=== PATIENT | female | born 1935 | race Caucasian/White ===

== ENCOUNTER 2021-03-09 22:00 | Emergency (ER) | payer MEDICARE ==
--- NOTE | 2021-03-09 22:23 | EDM.PDOC ---
ED HPI GENERAL MEDICAL PROBLEM - General Chief Complaint: General Stated Complaint: VERY TIRED Time Seen by Provider: 03/09/21 22:22 Source of Information: Reports: Patient History Limitations: Reports: Language Barrier (hearing hard) - History of Present Illness INITIAL COMMENTS - FREE TEXT/NARRATIVE: Son brings her in due to fatigue,excessive sleeping over two days. No other c omplaints. Has HTN,CKD,Hypothyroidism. - Related Data Allergies Allergy/AdvReac Type Severity Reaction Status Date / Time No Known Allergies Allergy Verified 03/09/21 22:10 ED ROS GENERAL - Review of Systems Review Of Systems: Comprehensive ROS is negative, except as noted in HPI. ED EXAM, GENERAL - Physical Exam Exam: See Below Exam Limited By: No Limitations General Appearance: Alert, WD/WN, No Apparent Distress Nose: Normal Inspection Throat/Mouth: Normal Inspection Head: Atraumatic Respiratory/Chest: No Respiratory Distress Cardiovascular: Normal Peripheral Pulses Course - Vital Signs Last Recorded V/S: Last Vital Signs Temp 98.0 F 03/09/21 23:15 Pulse 66 03/09/21 23:15 Resp 18 03/09/21 23:15 BP 149/69 H 03/09/21 23:15 Pulse Ox 99 03/09/21 23:15 - Orders/Labs/Meds Labs: Laboratory Tests 03/09/21 03/09/21 03/09/21 Range/Units 22:30 22:30 22:30 WBC 5.7 (3.0-10.3) x10-3/uL RBC 4.50 (3.60-5.20) x10(6)uL Hgb 13.2 (11.4-15.5) g/dL Hct 40.1 (34.2-48.2) % MCV 89.2 (76.7-100.5) fL MCH 29.3 (23.9-33.9) pg MCHC 32.9 (31.9-34.8) g/dL RDW 14.2 (12.3-16.5) % Plt Count 228 (151-488) x10(3)uL MPV 7.5 (7.1-12.4) fL Neut % (Auto) 66.8 (30.8-76.2) % Lymph % (Auto) 21.7 (18.4-52.1) % Sherman % (Auto) 7.8 (4.4-15.7) % Eos % (Auto) 3.2 (0.6-8.1) % Baso % (Auto) 0.5 (0.2-1.5) % Neut # (Auto) 3.8 (1.5-6.3) x10-3/uL Lymph # (Auto) 1.2 (1.0-4.4) x10-3/uL Sherman # (Auto) 0.4 (0.3-1.0) x10-3/uL Eos # (Auto) 0.2 (0.0-0.8) x10-3/uL Baso # (Auto) 0.0 (0.0-0.1) x10-3/uL Sodium 135 (135-145) mmol/L Potassium 3.7 (3.5-5.3) mmol/L Chloride 100 (100-110) mmol/L Carbon Dioxide 23 (21-32) mmol/L BUN 24 H (7-18) mg/dL Creatinine 1.4 H (0.55-1.02) mg/dL Est Cr Clr Drug Dosing 21.36 mL/min Estimated GFR (MDRD) 36 L (>60) BUN/Creatinine Ratio 17.1 (9-20) Glucose 113 (80-116) mg/dL Calcium 8.7 (8.6-10.2) mg/dL Troponin I 7.4 (4.0-60.3) pg/mL TSH, Ultra Sensitive (0.36-3.74) IU/mL SARS-CoV-2 RNA (BENJAMIN) (NEGATIVE) 03/09/21 03/09/21 Range/Units 22:30 22:40 WBC (3.0-10.3) x10-3/uL RBC (3.60-5.20) x10(6)uL Hgb (11.4-15.5) g/dL Hct (34.2-48.2) % MCV (76.7-100.5) fL MCH (23.9-33.9) pg MCHC (31.9-34.8) g/dL RDW (12.3-16.5) % Plt Count (151-488) x10(3)uL MPV (7.1-12.4) fL Neut % (Auto) (30.8-76.2) % Lymph % (Auto) (18.4-52.1) % Sherman % (Auto) (4.4-15.7) % Eos % (Auto) (0.6-8.1) % Baso % (Auto) (0.2-1.5) % Neut # (Auto) (1.5-6.3) x10-3/uL Lymph # (Auto) (1.0-4.4) x10-3/uL Sherman # (Auto) (0.3-1.0) x10-3/uL Eos # (Auto) (0.0-0.8) x10-3/uL Baso # (Auto) (0.0-0.1) x10-3/uL Sodium (135-145) mmol/L Potassium (3.5-5.3) mmol/L Chloride (100-110) mmol/L Carbon Dioxide (21-32) mmol/L BUN (7-18) mg/dL Creatinine (0.55-1.02) mg/dL Est Cr Clr Drug Dosing mL/min Estimated GFR (MDRD) (>60) BUN/Creatinine Ratio (9-20) Glucose (80-116) mg/dL Calcium (8.6-10.2) mg/dL Troponin I (4.0-60.3) pg/mL TSH, Ultra Sensitive 9.59 H* (0.36-3.74) IU/mL SARS-CoV-2 RNA (BENJAMIN) Negative (NEGATIVE) Departure - Departure Time of Disposition: 08:30 Disposition: Home, Self-Care 01 Condition: Good Clinical Impression: HTN (hypertension), Fatigue - Discharge Information Instructions: Fatigue Referrals: Kecia Ivory PA [Primary Care Provider] - Forms: ED Department Discharge Additional Instructions: we will call you with covid test tomorrow follow up with your primary care next week Sepsis Event Note (ED) - Evaluation Sepsis Screening Result: No Definite Risk - Focused Exam Vital Signs: Vital Signs Temp Pulse Resp BP Pulse Ox 03/09/21 23:15 98.0 F 66 18 149/69 H 99 03/09/21 22:00 97.9 F 73 18 161/91 H 99 - Problem List & Annotations (1) Fatigue SNOMED Code(s): 35637020 Code(s): R53.83 - OTHER FATIGUE Status: Acute (2) HTN (hypertension) SNOMED Code(s): 79816108 Code(s): I10 - ESSENTIAL (PRIMARY) HYPERTENSION Status: Acute (3) CKD (chronic kidney disease) SNOMED Code(s): 374832696 Code(s): N18.9 - CHRONIC KIDNEY DISEASE, UNSPECIFIED Status: Acute (4) Hypothyroidism SNOMED Code(s): 36740635 Code(s): E03.9 - HYPOTHYROIDISM, UNSPECIFIED Status: Acute - Problem List Review Problem List Initiated/Reviewed/Updated: Yes - Assessment/Plan Plan: No reason to explain her excessive sleep. Kidney function at baseline. DC home,follow with PCP
== END 2021-03-09 23:21 | disposition home or self-care (01) ==
LOC: FB.ED 22:00
DX: I10 Essential (primary) hypertension (principal); Z20.822 Contact with and (suspected) exposure to COVID-19
CPT/HCPCS: 36415; 80048; 84443; 84484; 85025; 99283; U0002

== ENCOUNTER 2023-03-17 13:04 | Inpatient (IN) | payer MEDICARE ==
[2023-03-17 14:05] LABS: BASOPHILS ABSOLUTE AUTO 0.1 x10-3/uL (0.0-0.1); EOSINOPHILS ABSOLUTE AUTO 0.2 x10-3/uL (0.0-0.8); HEMATOCRIT 38.4 % (34.2-48.2); HEMOGLOBIN 12.4 g/dL (11.4-15.5); LYMPHOCYTES ABSOLUTE AUTO 0.9 x10-3/uL (1.0-4.4); LYMPHOCYTES PERCENT AUTO 14.5 % (18.4-52.1); MEAN CORPUSCULAR HEMOGLOBIN 28.7 pg (23.9-33.9); MEAN CORPUSCULAR HGB CONC 32.3 g/dL (31.9-34.8); MEAN CORPUSCULAR VOLUME 88.8 fL (76.7-100.5); MONOCYTES ABSOLUTE AUTO 0.4 x10-3/uL (0.3-1.0); MONOCYTES PERCENT AUTO 6.1 % (4.4-15.7); NEUTROPHILS ABSOLUTE AUTO 4.5 x10-3/uL (1.5-6.3); NEUTROPHILS PERCENT AUTO 75.4 % (30.8-76.2); PLATELET COUNT,PLT 212 x10(3)uL (151-488); RED BLOOD CELL COUNT 4.33 x10(6)uL (3.60-5.20); RED CELL DISTRIBUTION WIDTH 16.7 % (12.3-16.5); WHITE BLOOD CELL COUNT,WBC 5.9 x10-3/uL (3.0-10.3)
[2023-03-17 14:08] LABS: BLOOD UREA NITROGEN,BUN 28 mg/dL (7-18); BUN/CREATININE RATIO 18.7 (9-20); CALCIUM 9.3 mg/dL (8.6-10.2); CARBON DIOXIDE,CO2 22 mmol/L (21-32); CHLORIDE,CL 101 mmol/L (100-110); CREATININE 1.5 mg/dL (0.55-1.02); ESTIMATED GFR 33 mL/min (>60); GLUCOSE RANDOM 110 mg/dL (80-116); POTASSIUM,K 3.7 mmol/L (3.5-5.3); SODIUM,NA 138 mmol/L (135-145)
[2023-03-17 14:08] LABS: APPEARANCE,URINE SLIGHTLY CLOUDY (CLEAR); BACTERIA,URINE MODERATE (NS); BILIRUBIN,URINE NEGATIVE (NEGATIVE); COLOR,URINE YELLOW (YELLOW); GLUCOSE,URINE NORMAL (NORMAL); KETONES,URINE 15 mg/dL (NEGATIVE); LEUKOCYTE ESTERASE,URINE NEGATIVE (NEGATIVE); NITRITE,URINE POSITIVE (NEGATIVE); OCCULT BLOOD,URINE MODERATE (NEGATIVE); PROTEIN,URINE TRACE mg/dL (NEGATIVE); RBC,URINE 0-5 (0-5); SQUAMOUS EPITHELIAL CELLS,UR FEW (NS,R,O); UROBILINOGEN,URINE NORMAL (NEGATIVE); WBC,URINE 0-5 (0-5)
[2023-03-17 14:14] LABS: A/G RATIO 0.8; ALANINE AMINOTRANSFERASE,ALT 16 U/L (12-36); ALBUMIN 3.2 g/dL (2.9-4.5); ALKALINE PHOSPHATASE 89 IU/L (56-112); ASPARTATE AMNIOTRANSFERASE,AST 30 IU/L (5-25); BILIRUBIN TOTAL 1.1 mg/dL (0.1-1.3)
[2023-03-17] MEDS ORDERED: Lactated Ringers 1,000 ML IV SCH (14:30)
[2023-03-17] MEDS ORDERED: cefTRIAXone 2 GM Vial IVPUSH ONE (14:51)
[2023-03-17 15:17] LABS: INFLUENZA A NAA NEGATIVE (NEGATIVE); INFLUENZA B NAA NEGATIVE (NEGATIVE); RESPIRATORY SYNCYTIAL VIR NAA NEGATIVE (NEGATIVE)
[2023-03-17 15:18] LABS: CORONAVIRUS COVID-19 NAA NEGATIVE (NEGATIVE)
[2023-03-17 15:24] LABS: LACTIC ACID 1.4 mmol/L (0.4-2.0)
[2023-03-17] MEDS: Enoxaparin 30 MG/0.3 ML Syringe SUBCUT SCH (18:01)
[2023-03-17] MEDS: Azithromycin 500 MG in Sodium Chloride 0.9% 250 ML IV SCH (20:50)
[2023-03-17] MEDS: Sodium Chloride 0.9% 10 ML Syringe FLUSH PRN ×2 (22:38→22:40)
[2023-03-18 06:41] LABS: BASOPHILS PERCENT AUTO 0.9 % (0.2-1.5); EOSINOPHILS ABSOLUTE AUTO 0.2 x10-3/uL (0.0-0.8); EOSINOPHILS PERCENT AUTO 3.8 % (0.6-8.1); HEMATOCRIT 31.5 % (34.2-48.2); HEMOGLOBIN 10.4 g/dL (11.4-15.5); LYMPHOCYTES PERCENT AUTO 22.8 % (18.4-52.1); MEAN CORPUSCULAR VOLUME 87.9 fL (76.7-100.5); MEAN PLATELET VOLUME 8.2 fL (7.1-12.4); MONOCYTES ABSOLUTE AUTO 0.3 x10-3/uL (0.3-1.0); MONOCYTES PERCENT AUTO 7.4 % (4.4-15.7); NEUTROPHILS PERCENT AUTO 65.1 % (30.8-76.2); PLATELET COUNT,PLT 164 x10(3)uL (151-488); RED BLOOD CELL COUNT 3.59 x10(6)uL (3.60-5.20); RED CELL DISTRIBUTION WIDTH 16.3 % (12.3-16.5); WHITE BLOOD CELL COUNT,WBC 4.5 x10-3/uL (3.0-10.3)
[2023-03-18] MEDS: Levothyroxine 88 MCG Tab PO SCH (06:44)
[2023-03-18 06:45] LABS: BLOOD UREA NITROGEN,BUN 28 mg/dL (7-18); CALCIUM 8.6 mg/dL (8.6-10.2); CARBON DIOXIDE,CO2 23 mmol/L (21-32); CHLORIDE,CL 106 mmol/L (100-110); CREATININE 1.4 mg/dL (0.55-1.02); EST CRCL DRUG DOSING (CG) 20.56 mL/min; ESTIMATED GFR 36 mL/min (>60); GLUCOSE RANDOM 101 mg/dL (80-116); POTASSIUM,K 3.4 mmol/L (3.5-5.3); SODIUM,NA 140 mmol/L (135-145)
[2023-03-18] MEDS: amLODIPine 10 MG Tab PO SCH (09:58)
[2023-03-18] MEDS: Enoxaparin 30 MG/0.3 ML Syringe SUBCUT SCH (17:30)
[2023-03-18] MEDS: cefTRIAXone 1 GM Vial IVPUSH SCH (17:30)
[2023-03-18] MEDS: Azithromycin 500 MG in Sodium Chloride 0.9% 250 ML IV SCH (20:20)
[2023-03-19] MEDS: Levothyroxine 88 MCG Tab PO SCH (06:59)
[2023-03-19 07:30] LABS: BLOOD UREA NITROGEN,BUN 28 mg/dL (7-18); CALCIUM 8.2 mg/dL (8.6-10.2); CARBON DIOXIDE,CO2 22 mmol/L (21-32); CHLORIDE,CL 105 mmol/L (100-110); CREATININE 1.4 mg/dL (0.55-1.02); EST CRCL DRUG DOSING (CG) 20.56 mL/min; ESTIMATED GFR 36 mL/min (>60); GLUCOSE RANDOM 95 mg/dL (80-116); POTASSIUM,K 3.5 mmol/L (3.5-5.3); SODIUM,NA 138 mmol/L (135-145)
[2023-03-19] MEDS: amLODIPine 10 MG Tab PO SCH (09:06)
[2023-03-19] MEDS: Enoxaparin 30 MG/0.3 ML Syringe SUBCUT SCH (17:23)
[2023-03-19] MEDS: cefTRIAXone 1 GM Vial IVPUSH SCH (17:26)
[2023-03-19] MEDS: Sodium Chloride 0.9% 10 ML Syringe FLUSH PRN (17:30)
[2023-03-19] MEDS: Azithromycin 500 MG in Sodium Chloride 0.9% 250 ML IV SCH (20:18)
[2023-03-20] MEDS: Levothyroxine 88 MCG Tab PO SCH (06:48)
[2023-03-20] MEDS: amLODIPine 10 MG Tab PO SCH (08:12)
[2023-03-20] MEDS ORDERED: Amoxicillin/Clavulanate K 875-125 MG Tab PO SCH (11:45)
[2023-03-20] MEDS: Amoxicillin/Clavulanate K 500-125 MG Tab PO SCH ×2 (12:50→21:18)
[2023-03-20] MEDS: Spironolactone 25 MG Tab PO SCH ×2 (14:09→21:18)
[2023-03-20] MEDS: Enoxaparin 30 MG/0.3 ML Syringe SUBCUT SCH (17:13)
[2023-03-21] MEDS: Levothyroxine 88 MCG Tab PO SCH (06:45)
[2023-03-21 07:01] LABS: BASOPHILS PERCENT AUTO 1.1 % (0.2-1.5); EOSINOPHILS ABSOLUTE AUTO 0.3 x10-3/uL (0.0-0.8); EOSINOPHILS PERCENT AUTO 6.6 % (0.6-8.1); HEMOGLOBIN 10.2 g/dL (11.4-15.5); LYMPHOCYTES ABSOLUTE AUTO 1.2 x10-3/uL (1.0-4.4); LYMPHOCYTES PERCENT AUTO 29.8 % (18.4-52.1); MEAN CORPUSCULAR HEMOGLOBIN 29.1 pg (23.9-33.9); MEAN CORPUSCULAR HGB CONC 32.9 g/dL (31.9-34.8); MEAN CORPUSCULAR VOLUME 88.3 fL (76.7-100.5); MEAN PLATELET VOLUME 8.4 fL (7.1-12.4); MONOCYTES ABSOLUTE AUTO 0.3 x10-3/uL (0.3-1.0); MONOCYTES PERCENT AUTO 7.9 % (4.4-15.7); NEUTROPHILS ABSOLUTE AUTO 2.1 x10-3/uL (1.5-6.3); NEUTROPHILS PERCENT AUTO 54.6 % (30.8-76.2); PLATELET COUNT,PLT 161 x10(3)uL (151-488); RED BLOOD CELL COUNT 3.51 x10(6)uL (3.60-5.20); RED CELL DISTRIBUTION WIDTH 16.7 % (12.3-16.5); WHITE BLOOD CELL COUNT,WBC 3.9 x10-3/uL (3.0-10.3)
[2023-03-21 07:07] LABS: BLOOD UREA NITROGEN,BUN 25 mg/dL (7-18); BUN/CREATININE RATIO 17.9 (9-20); CALCIUM 8.5 mg/dL (8.6-10.2); CARBON DIOXIDE,CO2 24 mmol/L (21-32); CHLORIDE,CL 106 mmol/L (100-110); CREATININE 1.4 mg/dL (0.55-1.02); EST CRCL DRUG DOSING (CG) 20.56 mL/min; ESTIMATED GFR 36 mL/min (>60); GLUCOSE RANDOM 92 mg/dL (80-116); POTASSIUM,K 3.8 mmol/L (3.5-5.3); SODIUM,NA 139 mmol/L (135-145)
[2023-03-21] MEDS: Spironolactone 25 MG Tab PO SCH (08:27)
[2023-03-21] MEDS: amLODIPine 10 MG Tab PO SCH (08:27)
[2023-03-21] MEDS: Amoxicillin/Clavulanate K 500-125 MG Tab PO SCH (08:27)
== END 2023-03-21 17:45 | disposition home health service (06) | DRG 689 ==
LOC: FB.ED 13:04 → FB.MS 15:01
PROVIDERS: ADMIT Student in an Organized Health Care Education/Training Program; ATTEND Family Medicine
DX: N39.0 Urinary tract infection, site not specified (principal); J18.9 Pneumonia, unspecified organism; J44.0 Chronic obstructive pulmonary disease with (acute) lower respiratory infection; N18.32 Chronic kidney disease, stage 3b; E03.9 Hypothyroidism, unspecified; H91.90 Unspecified hearing loss, unspecified ear; G30.1 Alzheimer's disease with late onset; F02.B0 Dementia in other diseases classified elsewhere, moderate, without behavioral disturbance, psychotic disturbance, mood disturbance, and anxiety; B96.20 Unspecified Escherichia coli [E. coli] as the cause of diseases classified elsewhere; I12.9 Hypertensive chronic kidney disease with stage 1 through stage 4 chronic kidney disease, or unspecified chronic kidney disease; E03.8 Other specified hypothyroidism; E06.3 Autoimmune thyroiditis; Z79.890 Hormone replacement therapy; Z79.899 Other long term (current) drug therapy
CPT/HCPCS: 0241U; 36415; 71046; 80048; 80053; 81001; 83605; 83735; 83880; 84484; 85025; 87040; 87086; 87186; 93005; 93010; 93306; 96374; 97165-GO; 99285; 99285-25; A9270-GY; C8929; J0456; J0696; J1650; J3490; J7050